=== PATIENT | female | born 1980 | race Caucasian/White ===

== ENCOUNTER → 2017-01-17 | Outpatient (CLI) | payer BC ==
--- NOTE | ~2017-01-17 | NDGEN ---
PATIENT'S NAME: ARCHANA LAUGHLIN [facility] AGE: 36 Y [address] ROOM: [place], [place] [id number] LOCATION: [facility] ADMIT DATE: 01/17/2017 Neurodiagnostics DISCHARGE DATE: FAMILY PHYSICIAN: Travis Loya MD ATTENDING PHYSICIAN: Cheng Medina DATE OF PROCEDURE: 01/17/2017 PROCEDURES PERFORMED: Nerve conduction study of the bilateral upper extremities, and an EMG of the right upper extremity. The patient had this study done on 01/17/2017. INDICATIONS: For this 36-year-old female patient, who has very steady headaches associated with muscle spasms into her trapezius muscles. She also has radiating symptoms of tingling and numbness into her arms and into her hands. This EMG was done to rule out any possibility of a median neuropathy at the wrists or a significant cervical radiculopathy. Median and ulnar motor and sensory nerves were stimulated along with F-wave studies being performed. There was completely normal motor onset latencies, amplitudes, and nerve conduction studies in the bilateral median and ulnar nerves. In the median and ulnar sensory nerves, there was normal motor onset latencies, amplitudes, as well as nerve conduction velocities. The F-wave studies of the median and ulnar nerves were all within normal limits. Next, a needle EMG was done in the right upper extremity. The needle was placed into the triceps and biceps, and supraspinatus muscles with the patient at rest, there was spontaneous firing of motor unit action potentials, consistent with spasms with the arm placed in multiple positions to try to release the firing response, the spasms continued. Spasms were noted in the C5-C6 routed muscles mostly and also in the right trapezius crest muscles. In the triceps muscle, there was no noted spasm. There was full recruitment of these motor unit action potentials, and no evidence of any spontaneous electrical activity such as fibrillations or positive sharp waves were seen. IMPRESSION: These were completely normal nerve conduction studies of the bilateral upper extremities. The needle EMG showed excessive spasms into the arm which seem to involve mostly the C5-C6 routed muscles. This is likely consistent with perhaps a pinched nerve and narrowing of the neural foramen at PATIENT'S NAME: ARCHANA LAUGHLIN [facility] AGE: 36 Y [address] ROOM: [place], [place] [id number] LOCATION: [facility] ADMIT DATE: 01/17/2017 Neurodiagnostics DISCHARGE DATE: FAMILY PHYSICIAN: Travis Loya MD ATTENDING PHYSICIAN: Cheng Medina the level C5-C6 due to the patient having full recruitment of motor unit action potentials, and no evidence of any abnormal spontaneous electrical activity, this would not be consistent with a cervical radiculopathy but only consistent with spontaneous muscle spasms. MD ROSI ESQUIVEL/bijal /[id number] dtt: 02/11/17 1602 , CHENG MEDINA. dtd: 01/17/17 1754
== END | disposition disaster alternative care site (69) ==
LOC: GNEU 14:54
DX: R42 Dizziness and giddiness (principal); R25.2 Cramp and spasm